=== PATIENT | male | born 2000 | race Two or more races ===

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

== ENCOUNTER 2022-04-27 17:43 | Emergency (ER) | payer MEDICAID, SELFPAY | END 2022-04-27 20:11 | disposition left against medical advice (07) | PROVIDERS: Emergency Provider Emergency Medicine | DX: R50.9 Fever, unspecified (principal) ==